=== PATIENT | female | born 1950 | race Hispanic/Latino ===

== ENCOUNTER 2016-08-19 10:31 | Day surgery (SDC) | payer BC ==
[~2016-08-19 10:31] MED LIST: ANCEF/STERILE WATER 2 GM/20 ML 2 GM/20 ML SYRINGE IV NR; DILAUDID IV PRN; NACL 0.9% 1000 ML 1,000 ML IV SCH; PEPCID PO NR; VERSED IV NR; ZOFRAN IV PRN
--- NOTE | 2016-08-19 11:28 | Anesthesia Day of Surgery ---
Anesthesia Day of Surgery - Day of Surgery Patient Examined: Yes Patient H&P Reviewed: Yes Patient is NPO: Yes Beta Blockers: Yes
--- NOTE | 2016-08-19 11:28 | Anesthesia Consultation ---
Anesthesia Consult and Med Hx - Airway Anesthetic Teeth Evaluation: Good ROM Head & Neck: Adequate Mental/Hyoid Distance: Adequate Mallampati Class: Class IV Intubation Access Assessment: Possibly Difficult - Pulmonary Exam CTA: Yes - Cardiac Exam Cardiac Exam: RRR - Pre-Operative Health Status ASA Pre-Surgery Classification: ASA2 Proposed Anesthetic Plan: General - Pulmonary Hx Smoking: No Hx Sleep Apnea: No (ABBIE PRE SCREEN HIGH RISK) - Cardiovascular System Hx Hypertension: Yes (X 15 YRS) - Hematic Hx Anemia: Yes - Other Systems Hx Alcohol Use: Yes (DAILY WINE) Hx Cancer: No - Additional Comments Anesthesia Medical History Comments: No previous anesthesia complications.
[2016-08-19 12:03] LABS: Hematocrit 37.8 % (30.3-42.9); Hemoglobin 12.5 gm/dl (10.1-14.3)
[2016-08-19] MEDS ORDERED: DIPRIVAN 10 MG/ML IV ONE (13:46)
[2016-08-19] MEDS ORDERED: DILAUDID ONE ×2 (13:46→15:12)
[2016-08-19] MEDS ORDERED: XYLOCAINE MPF 2% ONE (13:47)
[2016-08-19] MEDS ORDERED: ZOFRAN ONE (14:47)
[2016-08-19] MEDS ORDERED: NACL 0.9% IR ONE (14:49)
[2016-08-19] MEDS ORDERED: DECADRON ONE (15:00)
[2016-08-19] MEDS ORDERED: TORADOL ONE (15:02)
--- NOTE | 2016-08-19 15:14 | Short Stay Summary ---
Short Stay Documentation Date of service: 08/19/16 - History H&P: obtained from office - Allergies and Medications Current Medications: Allergies nickel Allergy (Verified 08/18/16 16:55) Rash omeprazole [From Prilosec] Allergy (Verified 08/18/16 16:56) Headache omeprazole magnesium [From Prilosec] Allergy (Verified 08/18/16 16:56) Headache vancomycin Allergy (Verified 08/18/16 16:56) KIDNEY FAILURE Home Medications Medication Instructions Recorded Confirmed Last Taken Type Bimatoprost 0.01%(Nf) [Lumigan 1 drop INTRAOCULA DAILY 08/18/16 08/19/16 07:00 History 0.01%(Nf)] Duloxetine HCl [Cymbalta] 60 mg PO DAILY 08/18/16 08/19/16 08/19/16 07:00 History Esomeprazole Magnesium [NexIUM] 40 mg PO QDAY 08/18/16 08/19/16 08/19/16 07:00 History Meloxicam [Mobic] 15 mg PO DAILY 08/18/16 08/19/16 08/18/16 07:00 History Nebivolol (Nf) [Bystolic (Nf)] 5 mg PO DAILY 08/18/16 08/19/16 08/19/16 07:00 History Oxybutynin [Ditropan] 5 mg PO BID 08/18/16 08/19/16 08/19/16 07:00 History Valsartan [Valsartan] 320 mg PO DAILY 08/18/16 08/19/16 08/19/16 07:00 History Augmentin 500 MG TAB 500 mg PO TID 08/19/16 08/19/16 08/19/16 07:00 History Tramadol HCl [traMADol] 50 mg PO TID 08/19/16 08/19/16 08/19/16 07:00 History Active Medications Famotidine (Pepcid) 20 mg PO PREOP NR Stop: 08/19/16 23:59 Last Admin: 08/19/16 11:28 Dose: 20 mg Hydromorphone HCl (Dilaudid) 0.5 mg IV Q10MIN PRN PRN Reason: Pain , Severe (7-10) Stop: 08/22/16 07:33 Cefazolin Sodium (Ancef/Sterile Water 2 Gm/20 Ml) 2 gm in 20 mls @ 80 mls/hr IV PREOP NR PRN Reason: Protocol Stop: 08/19/16 23:59 Sodium Chloride (Nacl 0.9% 1000 Ml) 1,000 mls @ 75 mls/hr IV DIRECT AMPARO Last Admin: 08/19/16 11:28 Dose: 75 mls/hr Midazolam HCl (Versed) 2 mg IV PREOP NR Stop: 08/19/16 23:59 Last Admin: 08/19/16 11:41 Dose: 2 mg - Brief post op/procedure progress note Date of procedure: 08/19/16 Pre-op diagnosis: Laceration left hand; abcess Post-op diagnosis: same Procedure: Irrigation debridment, palmar abcess/Tendon sheath Left ring finger Anesthesia: DARCY Surgeon: GEGE PURVIS Senior Marketing Data Analyst: DAVIS LOCKETT Estimated blood loss: minimal (cultures) - Disposition Condition at discharge: Stable Disposition: DISCHARGED TO HOME OR SELFCARE Short Stay Discharge Plan Follow up with: CARMITA PANIAGUA [Other] - 7 Days
[2016-08-19 16:12] VITALS: BP 153/72
--- NOTE | 2016-08-29 07:52 | Operative Report ---
PREOPERATIVE DIAGNOSIS: Abscess, palmar surface, left hand. PROCEDURE: Irrigation and debridement of palmar abscess and tendon sheath of the left ring finger. SURGEON: Lamont Santoro M.D. CHECK WRITER SALESPERSON: Sav Calderon RN. ANESTHESIA: General. COMPLICATIONS: None. DESCRIPTION OF PROCEDURE: Once the patient was in surgical room, a time-out was carried out to identify the patient and procedure. The hand was prepped and draped proximally and distally for a distance. The exploration of the area demonstrated a tendon sheath. The A1 missy of the finger was incised and opened. The flexion, extension and motion of the finger demonstrated the patient had a laceration of the tendon in a vertical plane along the base of the tendon without cutting the tendon completely. The area was debrided and cleaned out. Once this was done, the procedure was terminated. Wound was irrigated. The wound closed with 2 stitches of nylon with wound partially open. JOB# [id number] LOPEZ/JEWEL ENGLE
== END 2016-08-19 10:32 | disposition home or self-care (01) ==
LOC: OR 10:31
DX: S66.829A Laceration of other specified muscles, fascia and tendons at wrist and hand level, unspecified hand, initial encounter (principal); L02.512 Cutaneous abscess of left hand; K21.9 Gastro-esophageal reflux disease without esophagitis; I10 Essential (primary) hypertension; D64.9 Anemia, unspecified; Z88.8 Allergy status to other drugs, medicaments and biological substances; Z91.048 Other nonmedicinal substance allergy status; Z90.49 Acquired absence of other specified parts of digestive tract; Z93.3 Colostomy status; Z87.01 Personal history of pneumonia (recurrent); Z72.89 Other problems related to lifestyle; Z82.49 Family history of ischemic heart disease and other diseases of the circulatory system; Z80.9 Family history of malignant neoplasm, unspecified; Z82.3 Family history of stroke; X58.XXXA Exposure to other specified factors, initial encounter
CPT/HCPCS: 11043; 36415; 85014; 85018; 87075; 87116; J0690; J1100; J1170; J1885; J2250; J2405; J2704; J7030